=== PATIENT | male | born 1975 | race African-American/Black ===

== ENCOUNTER 2016-06-13 11:30 | Emergency (ER) | payer OTHER ==
[2016-06-13 11:45] VITALS: BP 128/83
--- NOTE | 2016-06-13 12:19 | PROVIDER DOCUMENTATION ---
HPI-Abdominal Pain/GI Problem - General Chief Complaint: Hemorrhoids Stated Complaint: HEMRRHOIDS Time Seen by Provider: 06/13/16 12:10 Source: family Allergies/Adverse Reactions: Patient Allergies Allergy/AdvReac Type Severity Reaction Status Date / Time Sulfa (Sulfonamide Allergy SWELLING Verified 06/13/16 11:45 Antibiotics) Home Medications: Metronidazole [Flagyl] 500 mg 06/13/16 - History of Present Illness-ABD Nature of Presenting Problems: 41 y/o AAM c mother as historian, c/o constipation that is chronic. Now having hemorrhoids that are protruding and painful. Denies rectal bleeding. Mother has tried apple cider vinegar on the hemorrhoids and Vitamin E oil. Denies abdominal pain. Denies n/v/d. Mother has not tried to push them back in. On Mirilax daily. Review of Systems - Adult - REVIEW OF SYSTEMS - ADULT Constitutional: reports: no symptoms reported. denies: chills, fever, fatique Eyes: reports: no symptoms reported. denies: blurred vision, double vision, eye pain Ears, Nose, Mouth & Throat: reports: no symptoms reported. denies: ear pain, nose pain, throat pain Cardiovascular: reports: no symptoms reported. denies: chest pain, palpitations Respiratory: reports: no symptoms reported. denies: cough, shortness of breath , wheezing Gastrointestinal: reports: see HPI, constipation, other (hemorrhoid). denies: abdominal pain, diarrhea, nausea, vomiting Genitourinary: reports: no symptoms reported. denies: dysuria, discharge, frequency, incontinence Musculoskeletal: reports: no symptoms reported. denies: back pain Integumentary: reports: no symptoms reported. denies: rash Neurological: reports: no symptoms reported. denies: headache/migraines Psychiatric: reports: no symptoms reported Endocrine: reports: no symptoms reported Hematologic/Lymphatic: reports: no symptoms reported Allergic/Immunologic: reports: no symptoms reported All Other Systems: Reviewed and Negative Past History - Adult - PAST MEDICAL HISTORY-ADULT Review of Records: reports: Old Records Reviewed, Nursing Assessment Review, Medications Reviewed, Social history reviewed & non-contributory. Major Childhood Illnesses: reports: denies history, other (deaf) Cardiovascular: reports: denies history Respiratory: reports: denies history Gastrointestinal: reports: denies history Genitourinary: reports: denies history Musculoskeletal: reports: denies history Neurological: reports: denies history Endocrine/Immune: reports: denies history Other Conditions: reports: denies history - FAMILY HISTORY Family History: reviewed, not pertinent Physical Exam-General - PHYSICAL EXAM-ADULT Initial Vital Signs Reviewed: Yes - CONSTITUTIONAL General Appearance: appears well, alert, no apparent distress - EYES Eyes: PERRL/EOMI, pink conjunctivae - HEAD, EARS, NOSE, MOUTH & THROAT HENMT: normocephalic/atraumatic, moist mucous membranes - NECK Neck: non-tender, full range of motion, supple, normal inspection - RESPIRATORY Respiratory: chest non-tender, lungs clear, normal breath sounds, no pleuratic chest pain, no respiratory distress, no accessory muscle use. negative: respiratory distress, decreased breath sounds, accessory muscle use, crackles, rales, rhonchi, wheezing - CARDIOVASCULAR Cardiovascular: normal peripheral pulses, regular rate, rhythm, no edema - GASTROINTESTINAL (ABDOMEN) Abdominal Exam: normal bowel sounds, non tender, soft, no organomegaly, no pulsatile mass. negative: abdominal bruit, abnormal bowel sounds, distended, guarding, rigid, rebound, tenderness - GENITOURINARY Rectal Exam: normal rectal tone, hemorrhoids (prolapsed internal hemorrhoids. I used petroleum jelly and gauze at push it back in with success), tenderness. negative: black stool, blood streaked stool - LYMPHATIC Lymphatic: no adenopathy - MUSCULOSKELETAL Extremity: normal gait - SKIN Integumentary: normal color, normal turgor, warm/dry - NEUROLOGIC Neurologic: grossly normal, no motor/sensory deficits - PSYCHIATRIC Psych/Mental Status: normal mood/affect, normal thought content, normal thought process, oriented x 3 Progress - PLAN OF CARE/RESULTS Progress/Plan/Lab Results: Vital Signs Temp Pulse Resp BP Pulse Ox 06/13/16 11:42 98.2 F 75 18 128/83 99 Sulfa (Sulfonamide Antibiotics) Allergy (Verified 06/13/16 11:45) SWELLING Bisacodyl [Dulcolax] 10 mg [place] QHS #20 supp 06/13/16 Metronidazole [Flagyl] 500 mg 06/13/16 Orders Category Date Time Status KUB ABDOMEN [RAD] Stat Exams 06/13/16 11:46 Taken Patient is deaf Departure - Departure Time of Disposition Order: 12:18 DIAGNOSIS: Prolapsed external hemorrhoids Disposition: HOME 01 Certified Medical Emergency: Emergent Condition: Stable Additional Instructions: Follow up with the GI physician ED Follow Up Instructions: You have been treated by a care provider in the Emergency Department. These instructions are being provided to you so you can have an understanding of how to care for yourself upon discharge. Upon discharge from the Emergency Department, you are responsible for making arrangements for follow-up care by a physician of your choice. Take all prescribed medications as directed. Return to the Emergency Department immediately for any new or worsening symptoms. You may call the Physician Referral phone number at [phone] to obtain a list of Physicians who are taking new patients. Prescriptions: Bisacodyl [Dulcolax] 10 mg [place] QHS #20 supp Referrals: Rhys Capellan [Primary Care Provider] - Warren Miller MD [STAFF PHYSICIAN] - Forms: Return to School/Parent Work Instructions: Bisacodyl suppositories, Hemorrhoids Attestation - Physician/ Mid-level Attestation Patient care was provided by Mid-level provider (PROFESSIONAL MODEL/PA):: Yes Mid-level provider:: Dee Sprague Mid-level documentation review:: The Mid-level provider documentation, treatment plan and medical decision making was reviewed by the physician who agrees with all treatment and medical decision making by the P.
--- NOTE | 2016-06-13 12:38 | Diag Imaging Result Document ---
PROCEDURE NAME: FUAD ABDOMEN - 06/13/2016 SINGLE SUPINE RADIOGRAPH OF THE ABDOMEN AND PELVIS: COMPARISON: None available. FINDINGS: There is a fair amount of patchy stool throughout the colon suggesting possible constipation. There is no obstructive bowel pattern. There is no definite large-volume free abdominal gas given the limitations of a supine study. No organomegaly is appreciated. IMPRESSION: Suggestion of constipation.
== END 2016-06-13 12:28 | disposition home or self-care (01) ==
LOC: P.ED 11:30
DX: K64.8 Other hemorrhoids (principal); K59.00 Constipation, unspecified; H91.90 Unspecified hearing loss, unspecified ear; Z79.899 Other long term (current) drug therapy
CPT/HCPCS: 74000; 99283